=== PATIENT | female | born 1945 | race Caucasian/White ===

== ENCOUNTER 2016-08-05 10:44 | Inpatient (IN) | payer MEDICARE ==
[~2016-08-05] VITALS: Ht 152.4 cm; Wt 66.4 kg
[2016-08-05] MEDS ORDERED: CLOP75TA22 PO (11:07)
[2016-08-05] MEDS ORDERED: ROSU5TAB PO (11:07)
[2016-08-05] MEDS ORDERED: LEVO50TA5 PO (11:07)
[2016-08-05] MEDS ORDERED: SODIUM CHLORIDE 0.9% 1,000 ML IV ONE (11:10)
[2016-08-05] MEDS ORDERED: NITROGLYCERIN SINGLE TAB 0.4 MG SL ONE (11:28)
[2016-08-05] MEDS ORDERED: NITROGLYCERIN SINGLE TAB 0.4 MG SL PRN (11:30)
[2016-08-05] MEDS ORDERED: SODIUM CHLORIDE FLUSH 10ML SYR IVF ONE (11:30)
[2016-08-05 11:47] LABS: BLOOD UREA NITROGEN 11 mg/dL (7-18)
[2016-08-05] MEDS ORDERED: OMNIPAQUE 350 MG/ML, 100ML BOTTLE ONE (13:03)
[2016-08-05 13:45] LABS: IS PT STATUS REG ER OR PRE ER? YES
[2016-08-05 14:53] VITALS: BP 144/83
[2016-08-05] MEDS ORDERED: BISACODYL 10 MG SUPP PR PRN (15:30)
[2016-08-05] MEDS ORDERED: DOCUSATE 100 MG CAPSULE PO PRN (15:30)
[2016-08-05] MEDS ORDERED: ONDANSETRON ODT 4 MG PO PRN (15:30)
[2016-08-05] MEDS ORDERED: POLYETHYLENE GLYCOL 17 GM PACKET PO PRN (15:30)
[2016-08-05] MEDS ORDERED: ENOXAPARIN 40 MG/0.4 ML SQ SCH (15:30)
[2016-08-05] MEDS ORDERED: morphine SULFATE 10 MG/ML, 1ML IVPush PRN (15:30)
[2016-08-05] MEDS ORDERED: hydrALAzine 20 MG/ML, 1ML IVPush PRN (15:30)
[2016-08-05] MEDS ORDERED: NITROGLYCERIN 0.4 MG/SPRAY SL PRN (15:30)
[2016-08-05] MEDS ORDERED: ACETAMINOPHEN 325 MG TABLET PO PRN (15:30)
[2016-08-05] MEDS ORDERED: [UNRECOGNIZED DRUG - REMARK] MC SCH (16:00)
[2016-08-05 19:03] LABS: IS PT STATUS REG ER OR PRE ER? NO
[2016-08-05 19:33] VITALS: BP 149/81
[2016-08-05] MEDS ORDERED: TEMPLATE NON-FORMULARY MED. (Rosuvastatin Calcium** (Crestor**) 5 MG) PO SCH (21:00)
[2016-08-05] MEDS: ONDANSETRON 2MG/ML, 2ML IVPush PRN (21:03)
[2016-08-06 00:50] LABS: IS PT STATUS REG ER OR PRE ER? NO
[2016-08-06] MEDS: ONDANSETRON 2MG/ML, 2ML IVPush PRN ×2 (01:03→05:01)
[2016-08-06] MEDS ORDERED: METOCLOPRAMIDE 5 MG/ML, 2ML IVPush PRN (03:00)
[2016-08-06] MEDS ORDERED: SODIUM CHLORIDE 0.9% 1,000 ML IV SCH (03:00)
[2016-08-06 04:00] VITALS: BP 159/79
[2016-08-06 05:23] LABS: BLOOD UREA NITROGEN 8 mg/dL (7-18)
[2016-08-06] MEDS ORDERED: LEVOTHYROXINE 25 MCG TABLET PO SCH (06:00)
[2016-08-06 07:05] VITALS: BP 144/84
[2016-08-06] MEDS ORDERED: LEVOTHYROXINE 50 MCG TABLET PO SCH (09:00)
[2016-08-06] MEDS ORDERED: CLOPIDOGREL 75 MG TABLET PO SCH (09:00)
[2016-08-06] MEDS ORDERED: REGADENOSON 0.4 MG/5 ML SYRINGE ONE (09:37)
[2016-08-06] MEDS ORDERED: LIDODERM 5% PATCH TD ONE (12:00)
[2016-08-06 14:43] VITALS: BP 129/74
[2016-08-06] MEDS ORDERED: LEVO25TA2 PO (16:26)
[2016-08-06] MEDS ORDERED: ONDA4TAB13 PO (16:26)
== END 2016-08-06 18:31 | disposition home health service (06) | DRG 313 ==
LOC: ED 12:18 → EDIP 13:40 → 5SO 14:41
PROVIDERS: ADMIT Internal Medicine; ATTEND Internal Medicine
DX: R07.89 Other chest pain (principal); J90 Pleural effusion, not elsewhere classified; K76.0 Fatty (change of) liver, not elsewhere classified; R00.1 Bradycardia, unspecified; E03.9 Hypothyroidism, unspecified; E78.5 Hyperlipidemia, unspecified; R19.7 Diarrhea, unspecified; K21.9 Gastro-esophageal reflux disease without esophagitis; Z87.891 Personal history of nicotine dependence; Z90.710 Acquired absence of both cervix and uterus; Z86.73 Personal history of transient ischemic attack (TIA), and cerebral infarction without residual deficits; Z88.5 Allergy status to narcotic agent; Z88.6 Allergy status to analgesic agent; Z82.3 Family history of stroke; I77.819 Aortic ectasia, unspecified site; E78.1 Pure hyperglyceridemia; R11.2 Nausea with vomiting, unspecified; R73.9 Hyperglycemia, unspecified; R29.6 Repeated falls
CPT/HCPCS: 36415; 71010; 71020; 71275; 76700; 78452; 80048; 80061; 82040; 83690; 83735; 84439; 84443; 84484; 85025; 85379; 93005; 93017; 93306; 96360; 96361; J1650; J2405; J2785; Q0162; Q9967; A9502; C9898; J2270; J2765; J7030

== ENCOUNTER → 2016-08-25 | Outpatient (CLI) | payer MEDICARE ==
[~2016-08-25] MED LIST: CLOP75TA22 PO; LEVO25TA2 PO; LEVO50TA5 PO; ONDA4TAB13 PO; ROSU5TAB PO
== END | disposition home or self-care (01) ==
LOC: RAD 16:35
PROVIDERS: ATTEND Family Medicine
DX: R05 Cough (principal)
CPT/HCPCS: 71020

== ENCOUNTER → 2018-07-26 | Outpatient (CLI) | payer MEDICARE ==
[~2018-07-26] MED LIST changes: -CLOP75TA22 PO; +CLOP75TA52 PO
== END | disposition home or self-care (01) ==
LOC: CFH 12:27
PROVIDERS: ATTEND Family Medicine
DX: Z12.31 Encounter for screening mammogram for malignant neoplasm of breast (principal)
CPT/HCPCS: 77067